=== PATIENT | female | born 1985 | race African-American/Black ===

== ENCOUNTER 2018-04-25 22:40 | Emergency (ER) | payer OTHER ==
[~2018-04-25] VITALS: Ht 162.6 cm; Wt 116.0 kg
[~2018-04-25 22:40] MED LIST: CLIN1CAP5 PO; MOBI15TA PO; TYLE3 PO
[2018-04-25 22:47] VITALS: BP 139/75; PULSE 101; RESP 16; TEMP 98.1; O2SAT 98
--- NOTE | 2018-04-25 23:55 | PD ---
HPI Chief Complaint: Injury Time Seen by Provider: 23:41 Travel History International Travel<30 days: No Contact w/Intl Traveler<30days: No Traveled to known affect area: No History of Present Illness HPI Patient is a 32-year-old female presents emergency department with atraumatic right index finger pain. Patient states she has had some pain and swelling for the past 2-3 days, cannot elicit any injury pattern. Not associate with any numbness tingling or limited range of motion. States the pain is fairly mild, particularly about the MCP joint. States his been fairly constant but is worsened when she moves her finger. PFSH Past Medical History Medical History: Denies Significant Hx Diminished Hearing: No Tetanus Vaccination: Unknown Influenza Vaccination: No ?: Not LMP: 04/16/18 Past Surgical History Surgical History: No Previous Surgery Social History Alcohol Use: No Tobacco Use: No Substance Use: No Allergies-Medications (Allergen,Severity, Reaction): Coded Allergies: No Known Allergies (Unverified Adverse Reaction, Unknown, 04/25/18) Reported Meds & Prescriptions Reported Meds & Active Scripts Active No Active Prescriptions or Reported Medications Review of Systems Except as stated in HPI: all other systems reviewed are Neg Physical Exam Narrative GENERAL: Well-nourished, well-developed patient. SKIN: Focused skin assessment warm/dry. HEAD: Normocephalic. EYES: No scleral icterus. No injection or drainage. NECK: Supple, trachea midline. No JVD or lymphadenopathy. CARDIOVASCULAR: Regular rate and rhythm without murmurs, gallops, or rubs. RESPIRATORY: Breath sounds equal bilaterally. No accessory muscle use. GASTROINTESTINAL: Abdomen soft, non-tender, nondistended. MUSCULOSKELETAL: No cyanosis, perhaps a trace amount of edema of the right index finger, no redness, no tenderness on passive flexion or extension cap refill is brisk, sensation normal. All tendon motions are intact. Skin skin shows no breakdown and no erythema. BACK: Nontender without obvious deformity. No CVA tenderness. Data Data Last Documented VS Vital Signs Date Time Temp Pulse Resp B/P (MAP) Pulse Ox O2 Delivery O2 Flow Rate FiO2 04/25/18 22:47 98.1 101 16 139/75 (96) 98 Orders Orders Finger ([id number]) (04/25/18 ) Ed Discharge Order (04/26/18 00:15) MDM Medical Decision Making Medical Screen Exam Complete: Yes Emergency Medical Condition: Yes Differential Diagnosis Strain, sprain, fracture, arthritis, cellulitis excluded clinically Narrative Course Patient room to the emergency department, x-ray series obtained showing finger within normal limits. Discussed with patient's of dramatic management return to ED criteria. She is stable for discharge no indication further workup at this time. Diagnosis Primary Impression: Finger pain, right Referrals: [facility] Patient Instructions: General Instructions, RICE Therapy (GEN) Additional Instructions: take ibuprofen 200mg every 6 hours as needed for pain. Take with food. Scripts No Active Prescriptions or Reported Meds Disposition: 01 DISCHARGE HOME Condition: Stable Larry Estes MD Apr 25, 2018 23:55
--- NOTE | 2018-04-26 00:11 | RADRPT ---
EXAM DATE: 04/26/2018 12:00 AM EDT AGE/SEX: 32 years / Female INDICATIONS: Right hand, second digit pain. No known injury. CLINICAL DATA: This is the patient's initial encounter. Patient reports that signs and symptoms have been present for 4 - 6 days and indicates a pain score of 7/10. MEDICAL/SURGICAL HISTORY: None. None. COMPARISON: No prior exams available for comparison. FINDINGS: 3 views of the right second digit. Bone alignment within normal limits. No evidence of fracture. No e vidence of joint narrowing. No focal bone erosion. Bone mineralization within normal limits. No radio paque foreign body identified. CONCLUSION: Right second digit series within normal limits. Electronically signed by: Amrit Cottrell MD 04/26/2018 12:10 AM EDT
== END 2018-04-26 00:29 | disposition home or self-care (01) ==
LOC: NEPD 22:40
DX: M79.644 Pain in right finger(s) (principal)
CPT/HCPCS: 73140; 99283

== ENCOUNTER 2018-08-29 06:03 | Observation (INO) ==
[2018-08-29] MEDS ORDERED: Chlorhexidine Gluconate 2% 1 Pack (2 Cloths) TOPICAL ONE (06:31)
[2018-08-29] MEDS ORDERED: Metoprolol Tartrate 25 MG Tablet PO ONE (06:31)
[2018-08-29] MEDS ORDERED: Sodium Chlor 0.9% Inj 500 ML IV.SIG SCH (07:00)
[2018-08-29] MEDS ORDERED: Ampicillin/Sulbactam Inj 3 GM in Sodium Chloride 0.9% Inj 100 ML IV.SIG SCH (07:00)
[2018-08-29] MEDS ORDERED: fentaNYL Citrate Inj 250 MCG/5 ML Ampul ONE (07:04)
[2018-08-29] MEDS ORDERED: Sugammadex Inj 200 MG/2 ML Vial IV.PUSH ONE (07:04)
[2018-08-29] MEDS ORDERED: HYDROmorphone PF Inj 0.5 MG/0.5 ML Syringe ONE (07:05)
[2018-08-29] MEDS ORDERED: Lidocaine 1%/Epinephrine 1:100,000 Inj 20 ML Vial ONE (07:09)
[2018-08-29] MEDS: Microfibrillar Collagen Hemostat 1 GM Packet TOPICAL ONE ×2 (08:00→09:05)
[2018-08-29] MEDS ORDERED: Lidocaine PF 1% Inj 5 ML Syringe INFILTRATN ONE (08:03)
[2018-08-29] MEDS ORDERED: Phenylephrine/NS 1000 MCG/10ML Syringe IV.PUSH ONE (08:03)
[2018-08-29] MEDS ORDERED: Morphine Inj 4 MG/ML Vial ONE (09:25)
--- NOTE | 2018-08-29 10:52 | MP ---
cc: Ilya Melendez MD DATE OF OPERATION: 08/29/2018 SURGEON: Ilya Melendez MD. PREOPERATIVE DIAGNOSES: 1. Obstructive sleep apnea. 2. Adenotonsillar hypertrophy. 3. Chronic tonsillitis. 4. Nasal airway obstruction 5. Septal deviation. 6. Hypertrophy of inferior turbinate. POSTOPERATIVE DIAGNOSES: 1. Obstructive sleep apnea. 2. Adenotonsillar hypertrophy. 3. Chronic tonsillitis. 4. Nasal airway obstruction 5. Septal deviation. 6. Hypertrophy of inferior turbinate. OPERATION PERFORMED: 1. Open repair, nasal septal fracture. 2. Bilateral submucosal resection of inferior turbinates. 3. Adenotonsillectomy. INDICATIONS: Documented in the history and physical. DETAILS OF PROCEDURE: The patient was taken to OR #2 and placed in the supine position. Following induction of general anesthesia and intubation, the nose was packed bilaterally with cotton pledgets saturated in 0.05% oxymetazoline. Nasal septum and inferior turbinates were injected with a total of 12 mL pf 1% Xylocaine with epinephrine 1:100,000 and she was then prepped and draped for surgery. The packing was removed and a hemitransfixion incision was made in the left nasal vestibule. Through this incision, the mucosa of the septum was elevated bilaterally as far as the junction of the bony and cartilaginous septum. This gave end on exposure of the quadrangular cartilage showing numerous comminuted fracture fragments extending into the airways bilaterally. A cumulative area of 2 x 2 cm was removed using Bert-Martha forceps. When this was completed, the mucosa was elevated from the bony septum and the maxillary crest and these were then removed using [place]-Thomas forceps on the bony septum and a 6 mm Yanick chisel on the maxillary crest. Incision was then closed using a running locked suture of 4-0 chromic and the mucosal layers of septum were approximated to each other with a quilting stitch of 4-0 plain gut. The inferior turbinates were then fractured out medially and stab incisions made along their inferior surfaces. Through these incisions, the submucosal soft tissue was reduced using a curette and preserving the conchal bone. The incisions were then cauterized using the suction Bovie at 45 garcia and the remnants of the inferior turbinates were then re-lateralized to the lateral nasal wall. The nose was then packed with Merocel tampons coated in mupirocin ointment. The table was then turned 90 degrees and a shoulder roll and McIvor mouth gag were put in place. The tonsils were then removed using the ArthroCare Coblator technique. A few sites of venous bleeding were cauterized using the bipolar cautery until hemostasis was complete. Following this, the adenoids were removed using the suction Bovie at 45 garcia and the stomach was aspirated of several milliliters of bilious gastric contents using a #18 [place] sump NG tube. At this point, the procedure was terminated. The patient was reversed from anesthesia and taken to recovery in good condition. COMPLICATIONS: There were no complications. ESTIMATED BLOOD LOSS: 100 mL. MD CHRIS Rahman/roro , 09:20 AM , 09:28 AM
[2018-08-29] MEDS: Acetaminophen-HYDROcodone 325/7.5 Liq 15 ML UDC PO PRN ×2 (13:47→19:57)
[2018-08-29] MEDS: Ampicillin/Sulbactam Inj 3 GM in Sodium Chloride 0.9% Inj 100 ML IV.SIG SCH ×2 (13:47→21:21)
[2018-08-30] MEDS: Acetaminophen-HYDROcodone 325/7.5 Liq 15 ML UDC PO PRN (04:59)
[2018-08-30] MEDS: Ampicillin/Sulbactam Inj 3 GM in Sodium Chloride 0.9% Inj 100 ML IV.SIG SCH (05:26)
[2018-08-30] MEDS ORDERED: buPROPion 150 MG 12 HR Tablet PO SCH (09:00)
[2018-08-30 10:29] VITALS: BP 99/53; PULSE 102; RESP 20; TEMP 96.6; O2SAT 98
== END 2018-08-30 08:43 | disposition home or self-care (01) ==
LOC: PHSDC 06:03 → PH3 06:03
PROVIDERS: ADMIT Otolaryngology; ATTEND Otolaryngology